=== PATIENT | male | born 1960 | race Caucasian/White ===

== ENCOUNTER 2017-01-22 00:12 | Inpatient (IN) | payer OTHER ==
[~2017-01-22] VITALS: Ht 167.6 cm; Wt 62.5 kg
--- NOTE | ~2017-01-22 | CO ---
Unit #: [id number] #: [id number] Patient: DOMINIQUE CUNNINGHAM [id number] [address] [address] [id number] I MR#: [id number] NAME: DOMINIQUE CUNNINGHAM ROOM: 464 Age: 56 Sex: M Admission Date: 01/22/2017 : 1960 Attending Physician: Naga Barry M.D. Primary Care Physician: Gallo Barnes M.D. Consultation Date: 01/22/2017 CONSULTATION REPORT REASON FOR CONSULTATION Urinary tract infection, hydronephrosis. HISTORY OF PRESENT ILLNESS This 56-year-old man presented to the emergency department complaining of back pain. He also complains of chronic severe urinary frequency, nocturia and dysuria. His time line is somewhat vague, but he has had this and associated incontinence requiring multiple diapers per day for up to four to six months, seemingly preceding his back surgery. He states that he has not had a Crump catheter or had treatment of urinary infection or prostatism. He had spinal rods placed on 09/04/[address] Sharma. He denies any fever, chills, gross hematuria or history of stone disease. PAST MEDICAL HISTORY 1. Hypertension. 2. Chronic obstructive pulmonary disease. 3. Depression. 4. Back pain. PAST SURGICAL HISTORY 1. Spinal surgery. 2. Right total hip arthroplasty. 3. Bilateral inguinal herniorrhaphies. 4. Left femur fracture. 5. Multiple minor extremity procedures. 6. Appendectomy. 7. Neck fusion. SOCIAL HISTORY Stopped smoking two years ago. . FAMILY HISTORY Negative for prostate cancer. ALLERGIES Penicillin. ADMISSION MEDICATIONS 1. Neurontin. 2. Omeprazole. 3. Multivitamins. 4. Ropinirole. 5. Metoprolol 6. Symbicort. Unit #: [id number] #: [id number] Patient: DOMINIQUE CUNNINGHAM 7. Ventolin. 8. Trazodone. 9. He has been started on Rocephin. REVIEW OF SYSTEMS Includes constipation. PHYSICAL EXAMINATION GENERAL: He is sitting up askew in bed with some obvious upper extremity spasticity, attempting to eat lunch, sitting in a diaper. VITALS: Afebrile, but temperature is slightly elevated at 99.2. Vital signs are stable, including pulse 89, blood pressure 110/74, respiratory rate 18, height 5'6", weight 137 pounds. ABDOMEN: Notable for clear bladder distension on palpation. Otherwise no masses, hernias or hepatosplenomegaly. Phallus under diaper is clean, circumcised, normal. Glans, meatus, testes and epididymides normal descended bilaterally. Digital exam normal anus, sphincter tone, empty vault. Prostate feels 30 g, soft, with no nodularity, fluctuans or tenderness. Large bladder palpable to fingertip. DIAGNOSTIC STUDIES IMAGING: CT scan shows bilateral hydro ureteral nephrosis to the level of the thickened distended bladder. Prostate appears normal size and a dilated prostatic urethra is evident, more consistent with neurogenic bladder than prostatism. LABORATORY: creatinine 1.2, was 0.6 in June. Liver function tests are normal. Serum WBC 11.1, hemoglobin 8.7. Urinalysis obvious infection. Urine culture is pending. ASSESSMENT The patient would appear to have a subacute urinary tract infection and subacute urinary retention with associated bilateral hydro ureteral nephrosis. There is not surprisingly some degree of acute kidney injury. Findings are more suggestive of neurogenic bladder than prostatism. PLAN Will place a Crump catheter and start him on tamsulosin, planning a follow-up ultrasound in several days. Ultimately, may need urodynamics and, if possible and necessary, clean intermittent catheterization. Thank you, Naga, for the consultation. Dictated by... Jewel Casanova M.D. RBJuli/dewayne TD: 01/23/2017 08:15 JOB #: [id number] CC: Hernesto Clarke M.D. Unit #: [id number] #: [id number] Patient: DOMINIQUE CUNNINGHAM CONSULTATION REPORT Page 1 of 1 X Jewel Casanova MD CONSULTATION REPORT
--- NOTE | ~2017-01-22 | CT2 ---
[facility] A Service of [facility] RADIOLOGY TEXT RESULTS PATIENT: DOMINIQUE CUNNINGHAM LOCATION: Psychiatric 464- : 60 UNIT #: [id number] AGE: [address]: Naga Barry MD SEX: M ORDER DR: [id number] [facility] [place] [facility] [address] [facility] [place], [place] [address] [id number] I MR#: [id number] Acc #: [id number] NAME: DOMINIQUE CUNNINGHAM : 1960 SEX: M STUDY DATE/TIME: 01/22/2017 5:06 UNIT: Psychiatric ROOM: [facility] STUDY DESCRIPTION: CT Abd and Pelv W Cont Attending Physician: Naga Barry M.D. Ordering Physician: Ryland Sargent D.O. Primary Care Physician: Gallo Barnes M.D. MEDICAL IMAGING REPORT This report is preliminary unless electronic signature is present EXAM CT abdomen and pelvis with contrast, 01/22/2017 HISTORY 56-year-old male in the ED complaining of worsening back pain over the last 2 days. Persistent intermittent back pain since lumbar spine surgery in August. TECHNIQUE CT examination of the abdomen and pelvis with IV contrast. GI contrast was not ordered. This CT examination was performed with one or more of the following radiation dose reduction techniques: automatic exposure control, adjustment of mA and/or kV according to patient size, and iterative reconstruction. FINDINGS ABDOMEN: The urinary bladder is distended and diffusely thick-walled with prominent wall enhancement. There is moderately severe bilateral hydronephrosis, there is urothelial enhancement throughout both ureters and the renal collecting systems. The findings suggest bladder outlet obstruction or neurogenic bladder with potential superimposed urinary infection/inflammation. Liver, pancreas and spleen are normal in size and appearance. No gallbladder distension or bile duct dilatation. Moderately large volume stool throughout normal-caliber colon. The appendix is surgically absent by history. PELVIS: Prostate and rectum are unremarkable. No inguinal hernia. Right hip arthroplasty. Previous lower lumbar spine fusion surgery. IMPRESSION [facility] A Service of [facility] RADIOLOGY TEXT RESULTS PATIENT: DOMINIQUE CUNNINGHAM LOCATION: Psychiatric 464- : 60 UNIT #: [id number] AGE: [address]: Naga Barry MD SEX: M ORDER DR: 1. Findings highly concerning for bladder outlet obstruction or potential neurogenic bladder with marked bilateral hydronephrosis. Diffuse bladder wall thickening with upper and lower urinary tract urothelial enhancement suggesting superimposed urinary inflammation or infection. Both kidneys enhance normally. No visible nephrolithiasis. 2. Postop changes lumbar spine surgery and right hip arthroplasty. 3. Moderately large volume stool throughout the colon. Surgically absent appendix. Dictated by... Jose Chacon M.D. THIS IS AN ELECTRONICALLY VERIFIED REPORT Jose Chacon M.D. at 01/22/2017 9:49 PM CAESAR/apolinar TD: 01/22/2017 08:20 JOB #: [id number] MEDICAL IMAGING REPORT Page 1 of 1 COPY
--- NOTE | ~2017-01-22 | DS ---
Unit #: [id number] #: [id number] Patient: DOMINIQUE CUNNINGHAM [id number] [address] [address] [id number] I MR#: [id number] NAME: DOMINIQUE CUNNINGHAM ROOM: 464 Age: 56 Sex: M Admission Date: 01/22/2017 : 1960 Discharge Date: 01/25/2017 Attending Physician: Naga Barry M.D. Primary Care Physician: Gallo Barnes M.D. DISCHARGE SUMMARY DISCHARGE DIAGNOSES 1. Bladder outlet obstruction with bilateral hydro, status post urology evaluation, status post Crump catheter. Continue Flomax. Stable from urology standpoint to be discharged with outpatient followup with Dr. Casanova. 2. Urinary tract infection, status post negative culture. Was treated with the Rocephin. Continue Macrodantin per urology recommendations. 3. Chronic pain, continue home Standard. 4. History of asthma and COPD, stable at the baseline. 5. Restless leg syndrome, continue Requip. 6. Anemia of chronic disease, stable. Discharge date H and H 8.1 and 25.6. LABS, DIAGNOSES AND PROCEDURES DURING THIS HOSPITAL STAY L-spine x-ray - no acute L space abnormality. CT abdomen and pelvis - highly concerning for bladder outlet obstruction. Potential neurogenic bladder with bilateral hydronephrosis. HISTORY OF PRESENT HOSPITAL STAY Please refer to H and P done by me for initial presentation on this gentleman. ACTIVE PROBLEMS AND DIAGNOSES 1. Bladder outlet obstruction with bilateral hydro, status post urology evaluation, status post Crump catheter. Continue on Flomax. Currently status post voiding trial. Stable from urology standpoint to be discharged. Outpatient followup with Dr. Casanova from urology. 2. UTI. Was treated with the Rocephin. Urine culture negative. Continue Macrodantin per urology recommendations. 3. Chronic pain, continue Standard. 4. History of asthma and COPD, stable. 5. Anemia of chronic disease, stable. DISCHARGE MEDICATIONS 1. Standard 10/325, one tablet q.6-8 hours p.r.n. for pain. 2. Home Ventolin, one puff inhaler daily. 3. Flomax 0.4 mg daily. 4. Tylenol p.r.n. 5. Neurontin 800 mg t.i.d. 6. Trazodone 100 mg at bedtime. 7. Requip 4 mg at bedtime. 8. Prilosec 40 mg daily. 9. Flexeril 10 mg t.i.d. Unit #: [id number] #: [id number] Patient: DOMINIQUE CUNNINGHAM 10. Macrodantin 100 mg daily. Patient should followup with the primary care physician, Dr. Gallo Barnes, in two to three days. Outpatient followup with urology with Dr. Casanova. Dictated by... Hernesto Clarke/porfirio TD: 01/26/2017 05:07 JOB #: [id number] DISCHARGE SUMMARY Page 1 of 1 X Naga Barry MD X DISCHARGE SUMMARY
--- NOTE | ~2017-01-22 | CR181 ---
[facility] A Service of [facility] RADIOLOGY TEXT RESULTS PATIENT: DOMINIQUE CUNNNIGHAM LOCATION: [place] [address] : [birth year] UNIT #: [id number] AGE: [address]: Naga Barry MD SEX: M ORDER DR: [id number] [place] [address] [facility]. [place], [place] [address] [id number] I MR#: [id number] Acc #: [id number] NAME: DOMINIQUE CUNNINGHAM : 1960 SEX: M STUDY DATE/TIME: 01/22/2017 2:58 UNIT: [facility] ROOM: Count includes the [facility] STUDY DESCRIPTION: CR Lumbar Spine 2 or 3 Views Attending Physician: Naga Barry M.D. Ordering Physician: Ryland Sargent D.O. Primary Care Physician: Gallo Barnes M.D. MEDICAL IMAGING REPORT This report is preliminary unless electronic signature is present EXAM Lumbar spine 01/22/2017 HISTORY 56-year-old male in the ED complaining of 2-day history of worsening low back pain. History of back surgery August 2016. TECHNIQUE Three-view lumbar spine series. FINDINGS No fracture or other acute osseous abnormality. Postop changes posterior fusion surgery with zac and pedicle screw fixation hardware in place at L3, L4 and L5. Mild degenerative disc space narrowing at these levels. Remainder of the exam is negative. Lumbar vertebral alignment is normal. IMPRESSION 1. No acute osseous abnormality. 2. Postop changes lower lumbar fusion surgery as noted above. Dictated by... Jose Chacon M.D. THIS IS AN ELECTRONICALLY VERIFIED REPORT Jose Chacon M.D. at 01/22/2017 9:49 PM CAESAR/apolinar TD: 01/22/2017 08:14 JOB #: [id number] MEDICAL IMAGING REPORT [facility] A Service [facility] RADIOLOGY TEXT RESULTS PATIENT: DOMINIQUE CUNNINGHAM LOCATION: [place] [address] : [birth year] UNIT #: [id number] AGE: [address]: Naga Barry MD SEX: M ORDER DR: Page 1 of 1 COPY
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
[~2017-01-22 00:12] MED LIST: ALBUTEROL17 GM INH; ASCORBIC ACID500 M2 PO; COMBIVENT U/D3 M3 INH; DESYREL50 MG PO; HYDROCODON-ACE1 EAC7 PO; IPRATR-ALBUTEROL3 ML IH; LEVAQUIN PO; METOPROLOL SUCC25 MG PO; METOPROLOL TAR25 MG PO; MULTI VITAMIN1 EACH PO; MULTIPLE VITAMI1 T13 PO; NAPROSYN-EC500 M1 PO; NEURONTIN800 MG PO; OMEPRAZOLE20 M1 PO; OMEPRAZOLE20 M2 PO; PREDNISONE10 MG/DOSE PO; PRILOSEC20 M1 PO; REQUIP1 MG PO; ROPINIROLE HCL2 MG PO; SYMBICORT INH; TRAZODONE HCL100 MG PO; VISINE15 ML OU
[2017-01-22 03:37] LABS: URINE SOURCE CLEAN CATCH
[2017-01-22 03:41] LABS: BASOPHIL# 0.1 X10e3 (0-0.3); BASOPHIL% 0.6 % (0-2.5); EOSINOPHIL# 0.2 X10e3 (0-0.7); EOSINOPHIL% 1.8 % (0.0-7.0); HEMATOCRIT 27.7 % (38.0-50.0); HEMOGLOBIN 8.7 gm/dL (13.0-16.0); LYMPHOCYTE% 17.8 % (17.0-45.0); MEAN CELL VOLUME 77.9 FL (83-96); MEAN CORPUSCULAR HEMOGLOBIN 24.4 PG (28-34); MEAN CORPUSCULAR HGB CONC 31.3 g/dL (30-36); MEAN PLATELET VOLUME 7.4 FL (6.5-11.5); MONOCYTE# 0.9 X10e3 (0-1.0); MONOCYTE% 8.1 % (3.0-12.0); NEUTROPHIL% 71.7 % (40-75); PLATELET COUNT 506 X10e3 (140-420); RED BLOOD COUNT 3.56 X10e (3.90-5.60); WHITE BLOOD COUNT 11.1 X10e3 (4.0-10.5)
[2017-01-22 03:42] LABS: DIFF IND NO
[2017-01-22 03:51] LABS: URINE APPEARANCE TURBID; URINE BILIRUBIN NEG (NEG); URINE BLOOD 2+ (NEG); URINE COLOR YELLOW; URINE GLUCOSE NEG (NEG); URINE KETONE NEG (NEG); URINE LEUKOCYTE ESTERASE 3+ (NEG); URINE NITRATE NEG (NEG); URINE PROTEIN 3+ (NEG); URINE SPECIFIC GRAVITY 1.012 (1.003-1.035); URINE UROBILINOGEN 0.2 MG/DL (NEG)
[2017-01-22 04:01] LABS: CULTURE INDICATED? YES; URINE BACTERIA AUWI 1+ (NEGATIVE); URINE SQUAMOUS EPITHELIAL CELL OCCAS /[HPF]; UWBCS1 AUWI INNUM (0-5)
[2017-01-22 04:12] LABS: AMPHETAMINE NEG (NEG); BARBITURATES NEG (NEG); BENZODIAZEPINES NEG (NEG); COCAINE NEG (NEG); MARIJUANA NEG (NEG); OPIATES POS (NEG); TRICYCLIC ANTIDEPRESSANTS POS (NEG); U METHADONE NEG (NEG)
[2017-01-22 04:15] LABS: ALBUMIN SERUM 3.7 g/dL (3.5-5.0); ALKALINE PHOSPHATASE 67 U/L (32-92); ALT (SGPT) 17 U/L (10-40); AST (SGOT) 18 U/L (10-42); BILIRUBIN, DIRECT <0.1 mg/dL (0.0-0.2); BILIRUBIN,TOTAL <0.1 mg/dL (0.2-2.0); BLOOD UREA NITROGEN 18 mg/dL (9-23); CALCIUM SERUM 8.8 mg/dL (8.4-10.2); CARBON DIOXIDE 26 mmol/L (22-31); CHLORIDE 102 mmol/L (100-111); CREATININE SERUM 1.2 mg/dL (0.6-1.4); GLOM FILT RATE Estimated 67.2 mL/min (>60); GLUCOSE FASTING 98 mg/dL (70-110); LIPASE 21 U/L (22-51); POTASSIUM 3.9 mmol/L (3.5-5.1); SODIUM 139 mmol/L (135-145)
[2017-01-22 04:17] LABS: INR 1.1; PARTIAL THROMBOPLASTIN TIME 29.5 SECONDS (23.5-31.3)
[2017-01-22] MEDS ORDERED: FLEXERIL10 MG PO (17:35)
[2017-01-22] MEDS ORDERED: PRILOSEC PO (17:35)
[2017-01-22] MEDS ORDERED: HYDROCODON-ACE1 EA11 PO (17:37)
[2017-01-22 21:17] LABS: BASOPHIL# 0.1 X10e3 (0-0.3); BASOPHIL% 1.3 % (0-2.5); EOSINOPHIL# 0.3 X10e3 (0-0.7); EOSINOPHIL% 3.1 % (0.0-7.0); HEMATOCRIT 26.3 % (38.0-50.0); HEMOGLOBIN 8.4 gm/dL (13.0-16.0); LYMPHOCYTE% 22.8 % (17.0-45.0); MEAN CELL VOLUME 78.3 FL (83-96); MEAN CORPUSCULAR HEMOGLOBIN 24.9 PG (28-34); MEAN CORPUSCULAR HGB CONC 31.8 g/dL (30-36); MEAN PLATELET VOLUME 7.1 FL (6.5-11.5); MONOCYTE# 0.7 X10e3 (0-1.0); MONOCYTE% 7.5 % (3.0-12.0); NEUTROPHIL# 5.9 X10e3 (1.5-7.1); NEUTROPHIL% 65.3 % (40-75); PLATELET COUNT 481 X10e3 (140-420); RED BLOOD COUNT 3.36 X10e (3.90-5.60); RED CELL DISTRIBUTION WIDTH 19.4 % (11.0-15.5)
[2017-01-22 21:23] LABS: DIFF IND NO
[2017-01-22 21:47] LABS: CALCIUM SERUM 8.3 mg/dL (8.4-10.2); CREATININE SERUM 1.2 mg/dL (0.6-1.4); GLOM FILT RATE Estimated 67.2 mL/min (>60); POTASSIUM 3.8 mmol/L (3.5-5.1)
[2017-01-23 15:00] LABS: HEMATOCRIT 27.8 % (38.0-50.0); HEMOGLOBIN 8.9 gm/dL (13.0-16.0); MEAN CELL VOLUME 78.1 FL (83-96); MEAN PLATELET VOLUME 7.2 FL (6.5-11.5); RED BLOOD COUNT 3.56 X10e (3.90-5.60); RED CELL DISTRIBUTION WIDTH 19.1 % (11.0-15.5); WHITE BLOOD COUNT 9.5 X10e3 (4.0-10.5)
[2017-01-23 15:37] LABS: BUN/CREATININE RATIO 16.25; CALCIUM SERUM 8.5 mg/dL (8.4-10.2); CREATININE SERUM 0.8 mg/dL (0.6-1.4); GLOM FILT RATE Estimated 99.9 mL/min (>60); POTASSIUM 3.8 mmol/L (3.5-5.1)
[2017-01-24 03:34] LABS: BASOPHIL# 0.1 X10e3 (0-0.3); BASOPHIL% 0.6 % (0-2.5); EOSINOPHIL# 0.3 X10e3 (0-0.7); EOSINOPHIL% 2.4 % (0.0-7.0); HEMATOCRIT 26.3 % (38.0-50.0); HEMOGLOBIN 8.5 gm/dL (13.0-16.0); LYMPHOCYTE# 1.9 X10e3 (1.0-3.5); LYMPHOCYTE% 16.8 % (17.0-45.0); MEAN CELL VOLUME 78.3 FL (83-96); MEAN CORPUSCULAR HEMOGLOBIN 25.2 PG (28-34); MEAN CORPUSCULAR HGB CONC 32.2 g/dL (30-36); MEAN PLATELET VOLUME 7.3 FL (6.5-11.5); MONOCYTE# 0.4 X10e3 (0-1.0); MONOCYTE% 3.3 % (3.0-12.0); NEUTROPHIL# 8.5 X10e3 (1.5-7.1); NEUTROPHIL% 76.9 % (40-75); PLATELET COUNT 464 X10e3 (140-420); RED BLOOD COUNT 3.36 X10e (3.90-5.60); RED CELL DISTRIBUTION WIDTH 19.2 % (11.0-15.5); WHITE BLOOD COUNT 11.1 X10e3 (4.0-10.5)
[2017-01-24 03:35] LABS: DIFF IND NO
[2017-01-25 03:48] LABS: HEMATOCRIT 25.6 % (38.0-50.0); HEMOGLOBIN 8.1 gm/dL (13.0-16.0); MEAN CELL VOLUME 78.1 FL (83-96); MEAN CORPUSCULAR HEMOGLOBIN 24.6 PG (28-34); MEAN CORPUSCULAR HGB CONC 31.5 g/dL (30-36); MEAN PLATELET VOLUME 7.3 FL (6.5-11.5); RED BLOOD COUNT 3.27 X10e (3.90-5.60); WHITE BLOOD COUNT 9.3 X10e3 (4.0-10.5)
[2017-01-25 04:02] LABS: BUN/CREATININE RATIO 16.25; CALCIUM SERUM 8.4 mg/dL (8.4-10.2); CREATININE SERUM 0.8 mg/dL (0.6-1.4); GLOM FILT RATE Estimated 99.9 mL/min (>60); POTASSIUM 4.1 mmol/L (3.5-5.1)
[2017-01-25] MEDS ORDERED: FLOMAX0.4 M1 PO (12:01)
[2017-01-25] MEDS ORDERED: MACRODANTIN PO (12:02)
[2017-01-25] MEDS ORDERED: HYDROCODON-ACE1 EAC5 PO (17:26)
[2017-02-18] MEDS ORDERED: DESYREL100 MG PO (11:03)
[2017-02-18] MEDS ORDERED: HYDROCODON-ACE1 EAC5 PO (11:03)
[2017-02-18] MEDS ORDERED: PRILOSEC PO (11:03)
[2017-02-18] MEDS ORDERED: PATIENT'S PHARMACY (11:03)
[2017-02-18] MEDS ORDERED: NITROFURANTOIN100 M3 PO (11:03)
[2017-02-18] MEDS ORDERED: ROPINIROLE HCL4 M1 PO (11:03)
[2017-02-18] MEDS ORDERED: FLOMAX0.4 M1 PO (11:04)
[2017-02-18] MEDS ORDERED: FLEXERIL10 MG PO (11:04)
[2017-02-18] MEDS ORDERED: GABAPENTIN400 MG PO (20:09)
== END 2017-01-25 17:52 | disposition home or self-care (01) | DRG 690 ==
LOC: CED 00:12 → CEDOF 06:24 → C4C 06:24
PROVIDERS: Emergency Medicine; Hospitalist
DX: N13.6 Pyonephrosis (principal); I10 Essential (primary) hypertension; G89.29 Other chronic pain; J44.9 Chronic obstructive pulmonary disease, unspecified; G25.81 Restless legs syndrome; D63.8 Anemia in other chronic diseases classified elsewhere; F32.9 Major depressive disorder, single episode, unspecified; Z87.891 Personal history of nicotine dependence; Z88.0 Allergy status to penicillin; Z96.641 Presence of right artificial hip joint
CPT/HCPCS: 36415; 72100; 74177; 80048; 80076; 80307; 81003; 83690; 85025; 85027; 85610; 85730; 87086; 94640; 94664; 94760; 96374; 96375; 97116; 97161; 97166; 97530; 99285; G8978-GP; G8979-GP; G8980-GP; G8987-GO; G8988-GO; G8989-GO; J0696; J2270; J2405; Q9967